=== PATIENT | female | born 1940 | race Caucasian/White ===

== ENCOUNTER 2023-01-01 14:47 | Outpatient (AMB) | payer MEDICARE, SELFPAY ==
--- NOTE | 2023-01-01 14:49 | A.OFFVIS_ITS ---
Intake Intake Visit Reasons: Recurrent UTI Intake Note: NEW Patient presents today to established treatment for UTI's: Meds- None Allergies to Antibiotic- Penicillins Blood Thinner- None Loan Operations Specialist Required: No Accompanied by: Self / Same As Patient Allergies aspirin Allergy (Mild, Verified 01/01/23 14:55) Swelling Penicillins Allergy (Mild, Verified 01/01/23 14:55) Unknown glucose Allergy (Verified 01/01/23 14:55) Unknown iodine Adverse Reaction (Mild, Verified 01/01/23 14:55) Nausea and Vomiting antihistamines Allergy (Mild, Uncoded 01/01/23 14:55) Palpitations Medication List - Last Reconciled 01/01/23 by Aguila Dumas MD atorvastatin 40 mg PO DAILY estradiol 1 patch transdermal 2XW estradiol (Vagifem) 10 mcg vaginal 2XW levothyroxine (Synthroid) 50 mcg PO DAILY nitrofurantoin monohyd/m-cryst 100 mg (Macrobid) 100 mg PO BID HPI HPI Comments History of Present Illness Details Kathia is an 82-year-old female who presents today to the office to establish as a new patient for an evaluation of recurrent urinary tract infections. 01/01/2023? She presents today for an evaluation of urinary tract infections. The Patient has a past medical history of hypothyroidism, osteoporosis, and history of hysterectomy. She was referred to the urology office by his PCP for recurrent urinary tract infections. She was seen by them on 11/06/2022 for lower urinary tract symptoms with urgency and bladder pressure. She was treated with Cipro 250 mg BID for 3 days during that time. She states she is sexually active. She still has feeling that the infection is not completely resolved. Evaluation today--UA--Leuk neg, blood neg Plan: Vagifem, Nitrofurantion prophylaxis. Discussed urine for Microgen evaluation. [facility] Medical History (Updated 01/01/23 @ 15:40 by Aguila Dumas MD) Age-related osteoporosis without current pathological fracture Primary insomnia Urinary tract infection, site not specified Hypothyroidism, unspecified Mixed hyperlipidemia Dysuria Surgical History (Updated 12/15/22 @ 10:04 by HERBERTH Manzano) Hx of removal of cyst Hx of section Hx of hysterectomy Hx of cholecystectomy Family History (Updated 12/15/22 @ 10:07 by HERBERTH Manzano) Father Heart disease Cancer Kidney disease Mother Stroke Diabetes Social History (Updated 12/15/22 @ 10:05 by HERBERTH Manzano) Alcohol intake: never Patient Tobacco Use Status: Never used Tobacco Review of Systems Const All systems reviewed & are unremarkable except as noted in HPI and below Reports no additional complaints Eyes Reports no additional complaints ENT Reports no additional complaints Card Denies dyspnea Resp Denies cough and Denies dyspnea GI Reports no additional complaints Reports no additional complaints Musc Reports no additional complaints Skin/Breast Denies rash and Denies unusual bruising Neuro Reports no additional complaints Psych Reports no additional complaints Endo Reports no additional complaints Ekvin/Lymph Reports no additional complaints Aller/Immun Reports no additional complaints Physical Exam Const General: cooperative, healthy appearing and no acute distress Orientation/consciousness: patient oriented x3 HEENT Head: Yes normal to inspection, Yes normocephalic and Yes atraumatic Eyes Conjunctivae: conjunctivae normal Neck Neck: Yes normal visual inspection and Yes trachea midline Chest Chest palpation & inspection: normal inspection of the chest Resp Effort & Inspection: normal respiratory effort Cardio Rate: regular rate GI Inspection: Yes normal to inspection Skin General skin exam: no rashes or lesions noted Neuro General: patient oriented x3 Extrem General: No edema Psych Appearance: grossly normal Results AMB Urinalysis, Automated UA Leukoctes 0 Paul/uL Last Edit by HERBERTH Manzano on 01/01/23 15:13 UA Nitrite Negative Last Edit by HERBERTH Manzano on 01/01/23 15:13 UA Urobilinogen 0.2 mg/dL Last Edit by HERBERTH Manzano on 01/01/23 15:1 3 UA Protein 0 mg/dL Last Edit by HERBERTH Manzano on 01/01/23 15:13 UA pH 5.5 Last Edit by HERBERTH Manzano on 01/01/23 15:13 UA Blood 0 Ambrocio/uL Last Edit by HERBERTH Manzano on 01/01/23 15:13 UA Specific [place] 1.030 Last Edit by Linnette Eastman A on 01/01/23 15: 13 UA Ketone Negative Last Edit by Linnette Eastman RMA on 01/01/23 15:13 UA Bilirubin 0 mg/dL Last Edit by Linnette Eastman A on 01/01/23 15:13 UA Glucose 0 mg/dL Last Edit by Linnette Eastman A on 01/01/23 15:13 Results Reviewed Results Reviewed: Laboratory Last Values Urine pH (Auto) 5.5 01/01/23 14:50 Specific [place] (Auto) 1.030 01/01/23 14:50 Urine Protein (Auto) 0 mg/dL 01/01/23 14:50 Glucose (UA)(Auto) 0 mg/dL 01/01/23 14:50 Urine Ketones (Auto) Negative 01/01/23 14:50 Urine Blood (Auto) 0 Ambrocio/uL 01/01/23 14:50 Urine Nitrite (Auto) Negative 01/01/23 14:50 Urine Bilirubin (Auto) 0 mg/dL 01/01/23 14:50 Urine Urobilinogen (Auto) 0.2 mg/dL 01/01/23 14:50 Leukocyte Esterase (Auto) 0 Paul/uL 01/01/23 14:50 Assessment & Plan Assessment & Plan (1) Postmenopausal atrophy of urethra: Code(s): N95.8 - Other specified menopausal and perimenopausal disorders; N36.8 - Other specified disorders of urethra (2) Recurrent UTI: Code(s): N39.0 - Urinary tract infection, site not specified Plan Vagifem, Nitrofurantion prophylaxis. Orders: Orders AMB Urinalysis Automated 01/01/23 Z13.9 - Encounter for screening, unspecified US renal BI 01/01/23 N39.0 - Urinary tract infection, site not specified Medications: New estradiol (Vagifem) apply vaginally twice a week Mon/Thurs 10 mcg vaginal 2XW 24 tabs 1RF nitrofurantoin monohyd/m-cryst 100 mg (Macrobid) must administer with a meal/food as may cause GI upset use as directed, take one tab after intercourse, if symptoms persist continue bid and complete course of therapy 100 mg PO BID 14 caps 0RF Patient Instructions: The patient had an opportunity to ask questions regarding treatment plan. All questions were answered. Imaging, Laboratory studies and physical exam results were discussed and reviewed in detail. No major barriers to understanding were identified. The patient expressed understanding and agreement with the above treatment plan.? ? ? The patient is aware they should contact our office by phone for worsening of their current condition or the appearance of new symptoms. Compliance is encouraged with any medications and followup testing that is ordered.? ? ? It is a privilege to be allowed the opportunity to participate in the urologic care of your patient. If you have any questions or concerns regarding treatment for the above conditions please do not hesitate to contact me. The office telephone contact is [phone].? ? ? This note is constructed in part using voice recognition software. While every effort has been made to ensure accuracy auto service station attendant errors may have been included.? ? ? Yours sincerely,? ? ? Aguila Dumas MD? Coding Level of Care Code New Pt Level 3 (49873) Diagnoses Postmenopausal atrophy of urethra N95.8; N36.8 Recurrent UTI N39.0
== END 2023-01-01 15:38 | disposition home or self-care (01) ==
PROVIDERS: PCP Hospitalist; Visit Provider Urology
DX: N95.8 Other specified menopausal and perimenopausal disorders (principal); N36.8 Other specified disorders of urethra; N39.0 Urinary tract infection, site not specified
CPT/HCPCS: 99203

== ENCOUNTER → 2023-01-01 14:47 | Outpatient (BNVA) | payer MEDICARE, SELFPAY | PROVIDERS: PCP Hospitalist; Visit Provider Urology | DX: N39.0 Urinary tract infection, site not specified (principal); N95.8 Other specified menopausal and perimenopausal disorders; N36.8 Other specified disorders of urethra | CPT/HCPCS: 81003; 99202 ==

== ENCOUNTER → 2023-01-05 10:41 | Outpatient (BNVA) | payer MEDICARE, SELFPAY | PROVIDERS: PCP Hospitalist; Visit Provider Urology ==

== ENCOUNTER 2023-02-15 12:58 | Outpatient (REF) | payer MEDICARE, SELFPAY ==
--- NOTE | ~2023-02-15 | US_ITS ---
EXAMINATION: US RETROPERITONEAL LIMITED (RENAL ONLY) CLINICAL INFORMATION: Urinary tract infection, site not specified. COMPARISON: None available. TECHNIQUE: Real-time imaging of the kidneys. FINDINGS: RIGHT KIDNEY: 9.3 x 3.6 x 4.6 cm (SAG x AP x TRV). The kidney is normal in size, contour, and echogenicity. Renal cortical thickness is normal. No calculi or focal parenchymal lesions. No hydronephrosis. LEFT KIDNEY: 10.2 x 4.6 x 4.8 cm (SAG x AP x TRV). The kidney is normal in size, contour, and echogenicity. Renal cortical thickness is normal. No calculi or focal parenchymal lesions. No hydronephrosis. US/US renal BI IMPRESSION: Normal sonographic appearance of bilateral kidneys.
== END 2023-02-15 12:59 | disposition home or self-care (01) ==
LOC: HO.US 12:58
PROVIDERS: PCP Hospitalist; Visit Provider Urology
DX: N39.0 Urinary tract infection, site not specified (principal)
CPT/HCPCS: 76775

== ENCOUNTER 2023-03-11 09:41 | Outpatient (AMB) | payer MEDICARE, SELFPAY ==
--- NOTE | 2023-03-11 09:43 | MHC.OFFVIS ---
Intake Intake Visit Reasons: 10w/US Intake Note: Patient presents today for US Results, completed on 02/15/2023: Meds- Estradiol Allergies to Antibiotic- Penicillins Blood Thinner- None Housing Manager Required: No Accompanied by: Self / Same As Patient Allergies aspirin Allergy (Mild, Verified 03/11/23 09:48) Swelling Penicillins Allergy (Mild, Verified 03/11/23 09:48) Unknown glucose Allergy (Verified 03/11/23 09:48) Unknown iodine Adverse Reaction (Mild, Verified 03/11/23 09:48) Nausea and Vomiting antihistamines Allergy (Mild, Uncoded 03/11/23 09:48) Palpitations HPI HPI Comments History of Present Illness Details Kathia is an 82-year-old female who presents today to the office for a follow-up. 03/11/2023? She is followed today for US results. The Patient has a past medical history of hypothyroidism, osteoporosis, and history of hysterectomy. She was last seen by me on 01/01/2023 for HEALTH COMMUNICATIONS SPECIALIST evaluation recurrent UTIs. The Patient's urine was sent for microgen- which resulted E. coli 78%, Citrobacter 2%, Enterococcus 2%. She was prescribed vagifem. Today she states she is compliant with the vagifem and feels it is helping. I have reviewed the US retroperitoneum results from 02/15/2023 revealed no calculi or focal parenchymal lesions. No hydronephrosis. 03/11/2023: Evaluation today?UA?Leukocytes: negative; blood: negative. 03/11/2023: Plan: Advised the patient to continue vagifem as prescribed. Follow-up in one year. [facility] Medical History (Updated 01/01/23 @ 15:40 by Aguila Dumas MD) Age-related osteoporosis without current pathological fracture Primary insomnia Urinary tract infection, site not specified Hypothyroidism, unspecified Mixed hyperlipidemia Dysuria Surgical History (Updated 12/15/22 @ 10:04 by HERBERTH Manzano) Hx of removal of cyst Hx of section Hx of hysterectomy Hx of cholecystectomy Family History (Updated 12/15/22 @ 10:07 by HERBERTH Manzano) Father Heart disease Cancer Kidney disease Mother Stroke Diabetes Social History (Updated 12/15/22 @ 10:05 by HERBERTH Manzano) Alcohol intake: never Patient Tobacco Use Status: Never used Tobacco Review of Systems Const All systems reviewed & are unremarkable except as noted in HPI and below Reports no additional complaints Eyes Reports no additional complaints ENT Reports no additional complaints Card Denies dyspnea Resp Denies cough and Denies dyspnea GI Reports no additional complaints Reports no additional complaints Musc Reports no additional complaints Skin/Breast Denies rash and Denies unusual bruising Neuro Reports no additional complaints Psych Reports no additional complaints Endo Reports no additional complaints Kevin/Lymph Reports no additional complaints Aller/Immun Reports no additional complaints Results AMB Urinalysis, Automated UA Leukoctes 0 Paul/uL Last Edit by Linnette Eastman [facility] on 03/11/23 10:00 UA Nitrite Negative Last Edit by Linnette Eastman [facility] on 03/11/23 10:00 UA Urobilinogen 0.2 mg/dL Last Edit by Linnette Eastman [facility] on 03/11/23 10:00 UA Protein 0 mg/dL Last Edit by Linnette Eastman [facility] on 03/11/23 10:00 UA pH 5.5 Last Edit by Linnette Eastman [facility] on 03/11/23 10:00 UA Blood 0 Ambrocio/uL Last Edit by Linnette Eastman [facility] on 03/11/23 10:00 UA Specific [place] 1.005 Last Edit by Linnette Eastman [facility] on 03/11/23 10:00 UA Ketone Negative Last Edit by Linnette Eastman [facility] on 03/11/23 10:00 UA Bilirubin 0 mg/dL Last Edit by Linnette Eastman [facility] on 03/11/23 10:00 UA Glucose 0 mg/dL Last Edit by Linnette Eastman [facility] on 03/11/23 10:00 Results Reviewed Results Reviewed: Laboratory Last Values Urine pH (Auto) 5.5 03/11/23 09:59 Specific [place] (Auto) 1.005 03/11/23 09:59 Urine Protein (Auto) 0 mg/dL 03/11/23 09:59 Glucose (UA)(Auto) 0 mg/dL 03/11/23 09:59 Urine Ketones (Auto) Negative 03/11/23 09:59 Urine Blood (Auto) 0 Ambrocio/uL 03/11/23 09:59 Urine Nitrite (Auto) Negative 03/11/23 09:59 Urine Bilirubin (Auto) 0 mg/dL 03/11/23 09:59 Urine Urobilinogen (Auto) 0.2 mg/dL 03/11/23 09:59 Leukocyte Esterase (Auto) 0 Paul/uL 03/11/23 09:59 Date of Service: 02/15/23 EXAMINATION: US RETROPERITONEAL LIMITED (RENAL ONLY) CLINICAL INFORMATION: Urinary tract infection, site not specified. COMPARISON: None available. TECHNIQUE: Real-time imaging of the kidneys. FINDINGS: RIGHT KIDNEY: 9.3 x 3.6 x 4.6 cm (SAG x AP x TRV). The kidney is normal in size, contour, and echogenicity. Renal cortical thickness is normal. No calculi or focal parenchymal lesions. No hydronephrosis. LEFT KIDNEY: 10.2 x 4.6 x 4.8 cm (SAG x AP x TRV). The kidney is normal in size, contour, and echogenicity. Renal cortical thickness is normal. No calculi or focal parenchymal lesions. No hydronephrosis. IMPRESSION: Normal sonographic appearance of bilateral kidneys. Assessment & Plan Assessment & Plan (1) Postmenopausal atrophy of urethra: Code(s): N95.8 - Other specified menopausal and perimenopausal disorders; N36.8 - Other specified disorders of urethra (2) Recurrent UTI: Code(s): N39.0 - Urinary tract infection, site not specified Plan Advised the patient to continue vagifem as prescribed. Follow-up in one year. Orders: Orders AMB Urinalysis Automated Today Z13.9 - Encounter for screening, unspecified Patient Instructions: The patient had an opportunity to ask questions regarding treatment plan. All questions were answered. Imaging, Laboratory studies and physical exam results were discussed and reviewed in detail. No major barriers to understanding were identified. The patient expressed understanding and agreement with the above treatment plan. The patient is aware they should contact our office by phone for worsening of their current condition or the appearance of new symptoms. Compliance is encouraged with any medications and followup testing that is ordered. It is a privilege to be allowed the opportunity to participate in the urologic care of your patient. If you have any questions or concerns regarding treatment for the above conditions please do not hesitate to contact me. The office telephone contact is [phone]. This note is constructed in part using voice recognition software. While every effort has been made to ensure accuracy buckram sewer errors may have been included. Yours sincerely, Aguila Dumas MD Coding Level of Care Code Est Pt Level 4 (14450) Diagnoses Postmenopausal atrophy of urethra N95.8; N36.8 Recurrent UTI N39.0
== END 2023-03-11 10:48 | disposition home or self-care (01) ==
PROVIDERS: PCP Hospitalist; Visit Provider Urology
DX: N95.8 Other specified menopausal and perimenopausal disorders (principal); N36.8 Other specified disorders of urethra; N39.0 Urinary tract infection, site not specified; Z13.9 Encounter for screening, unspecified
CPT/HCPCS: 99214

== ENCOUNTER → 2023-03-11 09:41 | Outpatient (BNVA) | payer MEDICARE, SELFPAY | PROVIDERS: PCP Hospitalist; Visit Provider Urology | DX: N39.0 Urinary tract infection, site not specified (principal); N95.8 Other specified menopausal and perimenopausal disorders; N36.8 Other specified disorders of urethra | CPT/HCPCS: 81003; 99212 ==

== ENCOUNTER 2024-03-16 09:20 | Outpatient (AMB) | payer MEDICARE, SELFPAY ==
--- NOTE | 2024-03-16 09:50 | A.OFFVIS_ITS ---
Intake Visit Reasons: 1y follow up Intake Note: Patient is present for yearly UTI follow up Urology Med: Estradiol Antibiotic Allergy: Penicillins Blood Thinner: Aspirin LABS: Urine Culture 11/04/23 Patient Symptoms: No symptoms Machine Setter Required: No Accompanied by: Self / Same As Patient Allergies aspirin Allergy (Mild, Verified 03/16/24 10:17) Swelling Penicillins Allergy (Mild, Verified 03/16/24 10:17) Unknown glucose Allergy (Verified 03/16/24 10:17) Unknown iodine Adverse Reaction (Mild, Verified 03/16/24 10:17) Nausea and Vomiting antihistamines Allergy (Mild, Uncoded 03/16/24 10:17) Palpitations Medication List - Last Reconciled 03/16/24 by Aguila Dumas MD atorvastatin 40 mg PO DAILY estradiol (Vagifem) 10 mcg vaginal 2XW levothyroxine (Synthroid) 50 mcg PO DAILY HPI Comments Details: 03/16/24 -Kathia presents for telehealth follow-up. She states that she has been doing well no UTI symptoms. Last urine culture (available to me to review), 11/04/2023 [id number] colonies mixed. She is using the Vagifem twice a week and notes that she has less vaginal dryness and irritation. Will continue Vagifem. 03/11/2023?Kathia is an 82-year-old female who presents today to the office for a follow-up. She is followed today for US results. The Patient has a past medical history of hypothyroidism, osteoporosis, and history of hysterectomy. She was last seen by me on 01/01/2023 for ANTENNA SPECIALIST evaluation recurrent UTIs. The Patient's urine was sent for microgen- which resulted E. coli 78%, Citrobacter 2%, Enterococcus 2%. She was prescribed vagifem. Today she states she is compliant with the vagifem and feels it is helping. I have reviewed the US retroperitoneum results from 02/15/2023 revealed no calculi or focal parenchymal lesions. No hydronephrosis. [facility] Medical History Age-related osteoporosis without current pathological fracture Primary insomnia Urinary tract infection, site not specified Hypothyroidism, unspecified Mixed hyperlipidemia Dysuria Surgical History Hx of removal of cyst Hx of section Hx of hysterectomy Hx of cholecystectomy Family History Father Heart disease Cancer Kidney disease Mother Stroke Diabetes Social History Alcohol intake: never Patient Tobacco Use Status: Never used Tobacco Review of Systems Const All systems reviewed & are unremarkable except as noted in HPI and below Reports no additional complaints Eyes Reports no additional complaints ENT Reports no additional complaints Card Reports no additional complaints Resp Reports no additional complaints GI Reports no additional complaints Reports as per HPI Musc Reports no additional complaints Skin/Breast Reports system reviewed and no additional complaints, except as documented Neuro Reports no additional complaints Psych Reports no additional complaints Endo Reports no additional complaints Kevin/Lymph Reports no additional complaints Aller/Immun Reports no additional complaints Telehealth Telehealth Telehealth Platform: Telephone Location of provider rendering services: practice address Location of patient: address on file Patient Identification confirmed using: Name, : Yes Telehealth method: voice only Patient verbally consented to treatment: Yes Patient verbally consented to billing insurance company: Yes Patient informed of any privacy concerns related to visit: Yes Minutes spent on Phone/Video with Pt.: 13 Results Reviewed Results Reviewed: Date of Service: 02/15/23 EXAMINATION: US RETROPERITONEAL LIMITED (RENAL ONLY) CLINICAL INFORMATION: Urinary tract infection, site not specified. COMPARISON: None available. TECHNIQUE: Real-time imaging of the kidneys. FINDINGS: RIGHT KIDNEY: 9.3 x 3.6 x 4.6 cm (SAG x AP x TRV). The kidney is normal in size, contour, and echogenicity. Renal cortical thickness is normal. No calculi or focal parenchymal lesions. No hydronephrosis. LEFT KIDNEY: 10.2 x 4.6 x 4.8 cm (SAG x AP x TRV). The kidney is normal in size, contour, and echogenicity. Renal cortical thickness is normal. No calculi or focal parenchymal lesions. No hydronephrosis. IMPRESSION: Normal sonographic appearance of bilateral kidneys. Assessment & Plan Assessment & Plan (1) Postmenopausal atrophy of urethra: Code(s): N95.8 - Other specified menopausal and perimenopausal disorders; N36.8 - Other specified disorders of urethra Category: Medical (2) Recurrent UTI: Code(s): N39.0 - Urinary tract infection, site not specified Category: Medical Plan Advised the patient to continue vagifem as prescribed. Follow-up in one year. Medications: Changed From estradiol (Vagifem) apply vaginally twice a week Mon/Thurs 10 mcg vaginal 2XW 24 tabs 2RF To estradiol (Vagifem) 10 mcg vaginal 2XW 24 tabs 3RF Patient Instructions: The patient had an opportunity to ask questions regarding treatment plan. The patient expressed understanding and agreement with the above treatment plan. The patient is aware they should contact our office by phone for worsening of their current condition or the appearance of new symptoms. Compliance is encouraged with any medications and followup testing that is ordered. It is a privilege to be allowed the opportunity to participate in the urologic care of your patient. If you have any questions or concerns regarding treatment for the above conditions please do not hesitate to contact me. The office telephone contact is [phone]. This note is constructed in part using voice recognition software. While every effort has been made to ensure accuracy rocket assembly operator errors may have been included. Yours sincerely, Aguila Dumas MD Coding Level of Care Code Tele Est Pt Level 3 (59374) Diagnoses Postmenopausal atrophy of urethra N95.8; N36.8 Recurrent UTI N39.0
== END 2024-03-16 13:28 | disposition home or self-care (01) ==
PROVIDERS: PCP Hospitalist; Visit Provider Urology
DX: N95.8 Other specified menopausal and perimenopausal disorders (principal); N36.8 Other specified disorders of urethra; N39.0 Urinary tract infection, site not specified
CPT/HCPCS: 99442

== ENCOUNTER 2025-03-19 11:00 | Outpatient (AMB) | payer MEDICARE, SELFPAY ==
--- NOTE | 2025-03-19 11:22 | MHC.OFFVIS ---
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 Accompanied by: Self / Same As Patient Allergies aspirin Allergy (Mild, Verified 03/19/25 11:23) Swelling Penicillins Allergy (Mild, Verified 03/19/25 11:23) Unknown glucose Allergy (Verified 03/19/25 11:23) Unknown iodine Adverse Reaction (Mild, Verified 03/19/25 11:23) Nausea and Vomiting antihistamines Allergy (Mild, Uncoded 03/16/24 10:17) Palpitations Medication List - Last Reconciled 03/19/25 by Aguila Dumas MD atorvastatin 40 mg PO DAILY estradiol (Vagifem) 10 mcg vaginal 2XW levothyroxine (Synthroid) 50 mcg PO DAILY HPI Comments Details: 03/19/25--Dillan is here for 1 year follow-up recurrent UTIs she is prescribed 03/16/24 -Kathia presents for telehealth follow-up. She states that she has been doing well no UTI symptoms. Last urine culture (available to me to review), 11/04/2023 [id number] colonies mixed. She is using the Vagifem twice a week and notes that she has less vaginal dryness and irritation. Will continue Vagifem. 03/11/2023?Kathia is an 82-year-old female who presents today to the office for a follow-up. She is followed today for US results. The Patient has a past medical history of hypothyroidism, osteoporosis, and history of hysterectomy. She was last seen by me on 01/01/2023 for MANAGER HEART FAILURE evaluation recurrent UTIs. The Patient's urine was sent for microgen- which resulted E. coli 78%, Citrobacter 2%, Enterococcus 2%. She was prescribed vagifem. Today she states she is compliant with the vagifem and feels it is helping. I have reviewed the US retroperitoneum results from 02/15/2023 revealed no calculi or focal parenchymal lesions. No hydronephrosis. [facility] Medical History Age-related osteoporosis without current pathological fracture Primary insomnia Urinary tract infection, site not specified Hypothyroidism, unspecified Mixed hyperlipidemia Dysuria Surgical History Hx of removal of cyst Hx of section Hx of hysterectomy Hx of cholecystectomy Family History Father Heart disease Cancer Kidney disease Mother Stroke Diabetes Social History Alcohol intake: never Patient Tobacco Use Status: Never used Tobacco Review of Systems Const All systems reviewed & are unremarkable except as noted in HPI and below Reports no additional complaints Eyes Reports no additional complaints ENT Reports no additional complaints Card Reports no additional complaints Resp Reports no additional complaints GI Reports no additional complaints Reports as per HPI Musc Reports no additional complaints Skin/Breast Reports system reviewed and no additional complaints, except as documented Neuro Reports no additional complaints Psych Reports no additional complaints Endo Reports no additional complaints Kevin/Lymph Reports no additional complaints Aller/Immun Reports no additional complaints Office Procedures Post Void Residual Post Residual Void Post Void Residual (PVR): 0 [id number] Void Residual by ultrasound Results AMB Urinalysis, Automated UA Leukoctes 0 Paul/uL Last Edit by Bibi Ziegler on 03/19/25 16:52 UA Nitrite Negative Last Edit by Bibi Ziegler on 03/19/25 16:52 UA Urobilinogen 0.2 mg/dL Last Edit by Bibi Ziegler on 03/19/25 16:52 UA Protein 15 mg/dL Last Edit by Bibi Ziegler on 03/19/25 16:52 UA pH 6.0 Last Edit by Bibi Ziegler on 03/19/25 16:52 UA Blood 0 [place]rocio/uL Last Edit by Bibi Ziegler on 03/19/25 16:52 UA Specific [place] 1.015 Last Edit by Bibi Ziegler on 03/19/25 16:52 UA Ketone Negative Last Edit by Bibi Ziegler on 03/19/25 16:52 UA Bilirubin 0 mg/dL Last Edit by Bibi Ziegler on 03/19/25 16:52 UA Glucose 0 mg/dL Last Edit by Bibi Ziegler on 03/19/25 16:52 Assessment & Plan Assessment & Plan (1) Postmenopausal atrophy of urethra: Code(s): N95.8 - Other specified menopausal and perimenopausal disorders; N36.8 - Other specified disorders of urethra Category: Medical (2) Recurrent UTI: Code(s): N39.0 - Urinary tract infection, site not specified Category: Medical Orders: Orders AMB Urinalysis Automated Today Z13.9 - Encounter for screening, unspecified AMB Post Void Residual by ultrasound Today N36.8 - Other specified disorders of urethra, N39.0 - Urinary tract infection, site not specified, N95.8 - Other specified menopausal and perimenopausal disorders Medications: Refilled estradiol (Vagifem) 10 mcg vaginal 2XW 24 tabs 3RF Coding Diagnoses Postmenopausal atrophy of urethra N95.8; N36.8 Recurrent UTI N39.0 CPT Codes Post Residual Void - PVR CPT Code: 77291-[id number] Void Residual by ultrasound ([id number])
== END 2025-03-19 11:43 | disposition home or self-care (01) ==
LOC: HO.HUSH 11:00
PROVIDERS: PCP Hospitalist; Visit Provider Urology
DX: Z13.9 Encounter for screening, unspecified (principal)

== ENCOUNTER → 2025-03-19 11:00 | Outpatient (BNVA) | payer MEDICARE, SELFPAY | PROVIDERS: PCP Hospitalist; Visit Provider Urology | DX: N39.0 Urinary tract infection, site not specified (principal); N95.8 Other specified menopausal and perimenopausal disorders; N36.8 Other specified disorders of urethra | CPT/HCPCS: 51798; 81003; 99212 ==